=== PATIENT | female | born 1995 | race American Indian/Alaskan Native ===

== ENCOUNTER 2017-08-14 09:25 | Emergency (ER) | payer SELFPAY ==
[2017-08-14 09:33] VITALS: BP 115/74
--- NOTE | 2017-08-14 10:28 | Emergency Department Report ---
HPI - General Chief Complaint: Headache Time Seen by Provider: 08/14/17 10:22 ED Past Medical Hx - Past Medical History Hx Headaches / Migraines: Yes - Surgical History Past Surgical History?: No - Social History Smoking Status: Never Smoker Substance Use Type: None ED Review of Systems ROS: Stated complaint: MIGRAINE Other details as noted in HPI Physical Exam - Physical Exam Vital Signs: Vital Signs 08/14/17 09:28 Temperature 98.6 F Pulse Rate 79 Respiratory 18 Rate Blood Pressure 115/74 O2 Sat by Pulse 100 Oximetry ED Course Vital Signs 08/14/17 09:28 Temperature 98.6 F Pulse Rate 79 Respiratory 18 Rate Blood Pressure 115/74 O2 Sat by Pulse 100 Oximetry Critical care attestation.: If time is entered above; I have spent that time in minutes in the direct care of this critically ill patient, excluding procedure time. ED Disposition Condition: Stable
--- NOTE | 2017-08-14 10:45 | Emergency Department Report ---
Blank Doc - Documentation Documentation: This 22-year-old female was WALKING out of her room on the phone as I was walking to go evaluate the patient. Patient stated that she was on the phone with her primary care and needed step outside to finish the call. Patient never returned for assessment
== END 2017-08-14 10:44 ==
LOC: ED 09:25
DX: G43.909 Migraine, unspecified, not intractable, without status migrainosus (principal); Z53.21 Procedure and treatment not carried out due to patient leaving prior to being seen by health care provider